=== PATIENT | male | born 1965 | race Caucasian/White ===

== ENCOUNTER 2017-06-19 14:56 | Inpatient (IN) | payer OTHER ==
[2017-06-19 17:25] VITALS: BMI 28.3
--- NOTE | 2017-06-19 18:20 | HP ---
CIWA Score - CIWA Score Nausea/Vomitin Muscle Tremors: 3 Anxiety: 3 Agitation: 3 Paroxysmal Sweats: 2 Orientation: 0-Oriented Tacttile Disturbances: 2-Mild Itch/Numbness/Burn Auditory Disturbances: 2-Mild Harshness/Frighten Visual Disturbances: 2-Mild Sensitivity Headache: 2-Mild CIWA-Ar Total Score: 22 Admission ROS BHS - HPI Chief Complaint: i am here to get my life back Allergies/Adverse Reactions: Allergies Allergy/AdvReac Type Severity Reaction Status Date / Time No Known Drug Allergies Allergy Verified 06/20/17 01:47 trazodone AdvReac Intermediate Nausea Verified 06/20/17 01:47 History of Present Illness: this 51 years old male with alcohol dependence,seeking detox ,last treatment [facility] 05/26/17 to 06/17/17 not completed seen in [facility] on 06/18/17 receiving librium asthma non union fx of left scaphoid at age of 31 years nicotine dependence longest period of sobriety 5 years ptsd anxiety and depression Exam Limitations: No Limitations - Ebola screening Have you traveled outside of the country in the last 21 days: No Have you had contact with anyone from an Ebola affected area: No Have you been sick,other than usual withdrawal symptoms: No Do you have a fever: No - Review of Systems Constitutional: Loss of Appetite, Malaise, Night Sweats, Changes in sleep, Weakness EENT: reports: Nose Congestion Respiratory: reports: No Symptoms reported Cardiac: reports: No Symptoms Reported GI: reports: Diarrhea, Nausea, Vomiting, Abdominal cramping : reports: No Symptoms Reported Musculoskeletal: reports: Back Pain, Muscle Pain Neuro: reports: Headache, Tremors Endocrine: reports: No Symptoms Reported Hematology: reports: No Symptoms Reported Psychiatric: reports: No Sypmtoms Reported, Judgement Intact, Orientated x3 ( insomnia), Anxious, Depressed Patient History - Patient Medical History Hx Anemia: No Hx Asthma: Yes (Pt is on Albuterol IH) Hx Chronic Obstructive Pulmonary Disease (COPD): No Hx Cardiac Disorders: No Hx Hypertension: Yes (BP: 156/104) Hx Hypercholesterolemia: No Hx Pacemaker: No HX Cerebrovascular Accident: No Hx Seizures: No Hx Diabetes: No Hx Gastrointestinal Disorders: No Hx Liver Disease: No Hx Genitourinary Disorders: No Hx Sexually Transmitted Disorders: No Hx Renal Disease (ESRD): No Hx Thyroid Disease: No Hx Human Immunodeficiency Virus (HIV): No (NEGATIVE HX last 2015) Hx Hepatitis C: No Hx Depression: Yes (anxiety,) Hx Suicide Attempt: No Hx Bipolar Disorder: No Hx Schizophrenia: No Other Medical History: no suicidal,no homicidal - Patient Surgical History Past Surgical History: No Hx Neurologic Surgery: No Hx Cataract Extraction: No Hx Cardiac Surgery: No Hx Lung Surgery: No Hx Breast Surgery: No Hx Breast Biopsy: No Hx Abdominal Surgery: No Hx Appendectomy: No Hx Cholecystectomy: No Hx Genitourinary Surgery: No Hx Orthopedic Surgery: No Other Surgical History: Sinus Surgery 7 months ago Anesthesia Reaction: No - PPD History Previous Implant?: Yes Documented Results: Positive w/o proof PPD to be Administered?: No - Smoking Cessation Smoking history: Current every day smoker Have you smoked in the past 12 months: Yes Aproximately how many cigarettes per day: 20 Hx Chewing Tobacco Use: No Initiated information on smoking cessation: Yes 'Breaking Loose' booklet given: 06/19/17 - Substance & Tx. History Hx Alcohol Use: Yes Hx Substance Use: No Substance Use Type: Alcohol Hx Substance Use Treatment: Yes ([facility]/17 to 06/17/17 not completed) - Substances Abused Alcohol Route: Oral Frequency: Daily Amount used: Vodka 2-3 pints Age of first use: 11 Date of Last Use: 06/18/17 Family Disease History - Family Disease History Family Disease History: CA: Father (LUNG CA ), Mother (OVARIAN CA;HTN- ), Other: Mother Admission Physical Exam BHS - Vital Signs Vital Signs: Vital Signs - 24 hr 06/19/17 17:23 Temperature 98.2 F Pulse Rate 93 H Respiratory 18 Rate Blood Pressure 156/104 - Physical General Appearance: Yes: Moderate Distress, Tremorous, Irritable, Sweating, Anxious HEENTM: Yes: Hearing grossly Normal, Normal ENT Inspection, Normocephalic, CONNIE , Pharynx Normal Respiratory: Yes: Lungs Clear, Normal Breath Sounds, No Respiratory Distress Neck: Yes: Within Normal Limits, Supple, Trachea in good position Breast: Yes: Within Normal Limits Cardiology: Yes: Within Normal Limits, Regular Rhythm, Regular Rate, S1, S2 Abdominal: Yes: Within Normal Limits, Normal Bowel Sounds, Non Tender, Flat, Soft Genitourinary: Yes: Within Normal Limits Back: Yes: Muscle Spasm Musculoskeletal: Yes: Back pain, Muscle Pain Extremities: Yes: Within Normal Limits, Normal Range of Motion, Tremors 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: 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: 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, Fully Oriented, Alert, Motor Strength 5/5 Integumentary: Yes: Dry Lymphatic: Yes: Within Normal Limits - Diagnostic (1) Nicotine dependence Current Visit: Yes Status: Acute Qualifiers: Nicotine product type: cigarettes Substance use status: in withdrawal Qualified Code(s): F17.213 - Nicotine dependence, cigarettes, with withdrawal (2) PTSD (post-traumatic stress disorder) Current Visit: No Status: Acute (3) Alcohol dependence with uncomplicated withdrawal Current Visit: Yes Status: Acute (4) History of asthma Current Visit: Yes Status: Chronic (5) Scoliosis Current Visit: Yes Status: Chronic Qualifiers: Scoliosis type: unspecified scoliosis (6) 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
[2017-06-19] MEDS ORDERED: MENTHOL/PHENOL 1 EACH UD MM PRN (18:33)
[2017-06-19] MEDS ORDERED: MAG HYDROX/AL HYDROX/SIMETH 30 ML UNIT-DOSE CUP PO PRN (18:33)
[2017-06-19] MEDS ORDERED: P-EPHED 60MG/TRIPROLIDI 2.5MG TABLET PO PRN (18:33)
[2017-06-19] MEDS ORDERED: chlordiazePOXIDE HCL 25 MG CAPSULE PO ONE (18:33)
[2017-06-19] MEDS ORDERED: LOPERAMIDE HCL 2 MG CAPSULE PO PRN (18:33)
[2017-06-19] MEDS ORDERED: hydrOXYzine PAMOATE 50 MG CAPSULE (FP) PO PRN (18:33)
[2017-06-19] MEDS ORDERED: chlordiazePOXIDE HCL 25 MG CAPSULE PO PRN (18:33)
[2017-06-19] MEDS ORDERED: ACETAMINOPHEN 325 MG TABLET (FP) PO PRN (18:33)
[2017-06-19] MEDS ORDERED: IBUPROFEN 400 MG TABLET (FP) PO PRN (18:33)
[2017-06-19] MEDS ORDERED: MAGNESIUM HYDROX 2400MG/30ML ORAL SUSPENSION 30 ML CUP PO PRN (18:33)
[2017-06-19] MEDS ORDERED: MAGNESIUM CITRATE 300 ML BOTTLE PO PRN (18:33)
[2017-06-19] MEDS ORDERED: ALBUTEROL SO4 6.7 GM HFA INHALER IH PRN (18:38)
[2017-06-19] MEDS: NICOTINE 21 MG/24 HOURS TOPICAL PATCH TD SCH (19:29)
[2017-06-19] MEDS ORDERED: diphenhydrAMINE HCL 50 MG CAPSULE PO PRN (22:00)
[2017-06-19] MEDS: THIAMINE HCL 100 MG TABLET (FP) PO SCH (22:40)
[2017-06-19] MEDS: chlordiazePOXIDE HCL 25 MG CAPSULE PO SCH (22:40)
[2017-06-19] MEDS: RANITIDINE HCL 150 MG TABLET (FP) PO SCH (22:40)
[2017-06-19 23:14] LABS: URINE APPEARANCE CLEAR; URINE BILIRUBIN NEGATIVE (NEGATIVE); URINE BLOOD NEGATIVE (NEGATIVE); URINE COLOR YELLOW; URINE GLUCOSE (UA) NEGATIVE (NEGATIVE); URINE KETONE NEGATIVE (NEGATIVE); URINE LEUK ESTERASE NEGATIVE (NEGATIVE); URINE NITRITE NEGATIVE (NEGATIVE); URINE PROTEIN NEGATIVE (NEGATIVE)
[2017-06-20] MEDS: chlordiazePOXIDE HCL 25 MG CAPSULE PO SCH ×4 (05:17→22:05)
[2017-06-20] MEDS: guaiFENesin/D-METHORPHAN HB 10 ML UNIT-DOSE CUPS PO PRN (05:18)
--- NOTE | 2017-06-20 09:04 | CONSULT ---
[facility] Psychiatric Consult - Data Date of interview: 06/20/17 Admission source: [facility] Identifying data: This is 51 years old male with psychiatric hospitalization history, history of PTSD and OTONIEL, intoxicated with: Alcoholm and Nicotine Substance Abuse History: - Smoking Cessation. Smoking history: Current every day smoker. Have you smoked in the past 12 months: Yes. Aproximately how many cigarettes per day: 20. Hx Chewing Tobacco Use: No. Initiated information on smoking cessation: Yes. 'Breaking Loose' booklet given: 06/19/17. - Substance & Tx. History. Hx Alcohol Use: Yes. Hx Substance Use: No. Substance Use Type : Alcohol. Hx Substance Use Treatment: Yes ([facility] to 06/17/17 not completed). - Substances Abused. Alcohol. Route: Oral. Frequency: Daily. Amount used: Vodka 2-3 pints. Age of first use: 11. Date of Last Use: Medical History: Asthma PPD + history, Scoliosis Psychiatric History: Patient reports history of depression, history of PTSD and OTONIEL as per computer, reports taking prior to admission: Seroquel 50mg po qhs Physical/Sexual Abuse/Trauma History: Denies Additional Comment: Seroquel 50mg po qhs Mental Status Exam - Mental Status Exam Alert and Oriented to: Person Cognitive Function: Fair Patient Appearance: Unkempt Mood: Apprehensive Affect: Mood Congruent Patient Behavior: Cooperative Speech Pattern: Appropriate Voice Loudness: Normal Thought Process: Circumstantial Thought Disorder: Being Controlled Hallucinations: Denies Suicidal Ideation: Denies Homicidal Ideation: Denies Insight/Judgement: Fair Sleep: Difficulty falling asleep Appetite: Fair Muscle strength/Tone: Mild Hypotonicity Gait/Station: Shuffling Additional Comments: Seroquel 50mg po qhs Psychiatric Findings - Problem List ([place] 1, 2,3) (1) OTONIEL (generalized anxiety disorder) Current Visit: No Status: Acute (2) Nicotine dependence Current Visit: No Status: Acute (3) PTSD (post-traumatic stress disorder) Current Visit: No Status: Acute (4) Alcohol dependence with uncomplicated withdrawal Current Visit: No Status: Chronic (5) Drug-induced mood disorder Current Visit: Yes Status: Acute - Initial Treatment Plan Initial Treatment Plan: Seroquel 50mg po qhs
[2017-06-20 10:15] LABS: MCH 31.8 pg (25.7-33.7); MCHC 33.6 g/dl (32.0-35.9); MEAN CELL VOLUME 94.7 fl (80-96); MEAN PLT VOLUME 8.7 fl (7.5-11.1); PLATELET COUNT 110 K/MM3 (134-434); RDW 17.5 % (11.9-15.9)
[2017-06-20 10:27] LABS: ALBUMIN 3.2 g/dl (3.4-5.0); ANION GAP 6 (8-16); CALCIUM 8.7 mg/dL (8.5-10.1); CO2 32 mmol/L (21-32); GLUCOSE,RANDOM 101 mg/dL (74-106)
[2017-06-20 10:31] LABS: ALK PHOS 71 U/L (45-117); CREATININE 0.7 mg/dL (0.7-1.3); SGOT/AST 98 U/L (15-37); SGPT/ALT 138 U/L (12-78)
[2017-06-20 10:37] LABS: HIV 1 & 2 AB NEGATIVE; HIV 1 AGp24 NEGATIVE
[2017-06-20] MEDS: RANITIDINE HCL 150 MG TABLET (FP) PO SCH ×2 (10:58→22:04)
[2017-06-20] MEDS: PRENATAL VITAMINS W/ FOLIC ACID TABLET (FP) PO SCH (10:58)
[2017-06-20] MEDS: IBUPROFEN 600 MG TABLET (FP) PO PRN ×2 (11:00→20:09)
[2017-06-20] MEDS: NICOTINE 21 MG/24 HOURS TOPICAL PATCH TD SCH ×2 (11:06→14:25)
--- NOTE | 2017-06-20 11:49 | PN ---
[facility] CIWA - CIWA Score Nausea/Vomitin-No Nausea/No Vomiting Muscle Tremors: 4-Moderate,w/Arms Extend Anxiety: 4-Mod. Anxious/Guarded Agitation: 3 Paroxysmal Sweats: 1-Minimal Palms Moist Orientation: 0-Oriented Tacttile Disturbances: 3-Moderate Itch/Numb/Burn Auditory Disturbances: 0-None Visual Disturbances: 0-None Headache: 0-None Present CIWA-Ar Total Score: 15 S Progress Note (SOAP) Subjective: TREMORS,ANXIETY,SWEATS,FATIGUE. Objective: 06/20/17 11:48 Vital Signs Temperature 97.0 F L 06/20/17 10:06 Pulse Rate 74 06/20/17 10:06 Respiratory Rate 18 06/20/17 10:06 Blood Pressure 145/100 06/20/17 10:06 O2 Sat by Pulse Oximetry (%) Laboratory Last Values WBC 6.0 K/mm3 (4.0-10.0) 06/20/17 06:30 RBC 4.25 M/mm3 (4.00-5.60) 06/20/17 06:30 Hgb 13.5 GM/dL (11.7-16.9) 06/20/17 06:30 Hct 40.3 % (35.4-49) 06/20/17 06:30 MCV 94.7 fl (80-96) 06/20/17 06:30 MCH 31.8 pg (25.7-33.7) 06/20/17 06:30 MCHC 33.6 g/dl (32.0-35.9) 06/20/17 06:30 RDW 17.5 % (11.9-15.9) H 06/20/17 06:30 Plt Count 110 K/MM3 (134-434) L D 06/20/17 06:30 MPV 8.7 fl (7.5-11.1) 06/20/17 06:30 Sodium 144 mmol/L (136-145) 06/20/17 06:30 Potassium 3.5 mmol/L (3.5-5.1) 06/20/17 06:30 Chloride 106 mmol/L (98-107) 06/20/17 06:30 Carbon Dioxide 32 mmol/L (21-32) D 06/20/17 06:30 Anion Gap 6 (8-16) L 06/20/17 06:30 BUN 15 mg/dL (7-18) D 06/20/17 06:30 Creatinine 0.7 mg/dL (0.7-1.3) D 06/20/17 06:30 Creat Clearance w eGFR > 60 (>60) 06/20/17 06:30 Random Glucose 101 mg/dL (74-106) D 06/20/17 06:30 Calcium 8.7 mg/dL (8.5-10.1) 06/20/17 06:30 Total Bilirubin 1.0 mg/dL (0.2-1.0) D 06/20/17 06:30 AST 98 U/L (15-37) H D 06/20/17 06:30 ALT 138 U/L (12-78) H D 06/20/17 06:30 Alkaline Phosphatase 71 U/L (45-117) 06/20/17 06:30 Total Protein 6.0 g/dl (6.4-8.2) L 06/20/17 06:30 Albumin 3.2 g/dl (3.4-5.0) L 06/20/17 06:30 Urine Color Yellow 06/19/17 18:47 Urine Appearance Clear 06/19/17 18:47 Urine pH 6.0 (5.0-8.0) 06/19/17 18:47 Ur Specific [place] 1.025 (1.005-1.025) 06/19/17 18:47 Urine Protein Negative (NEGATIVE) 06/19/17 18:47 Urine Glucose (UA) Negative (NEGATIVE) 06/19/17 18:47 Urine Ketones Negative (NEGATIVE) 06/19/17 18:47 Urine Blood Negative (NEGATIVE) 06/19/17 18:47 Urine Nitrite Negative (NEGATIVE) 06/19/17 18:47 Urine Bilirubin Negative (NEGATIVE) 06/19/17 18:47 Urine Urobilinogen 2.0 mg/dL (0.2-1.0) 06/19/17 18:47 Ur Leukocyte Esterase Negative (NEGATIVE) 06/19/17 18:47 HIV 1&2 Antibody Screen Negative 06/20/17 06:30 HIV P24 Antigen Negative 06/20/17 06:30 Assessment: 06/20/17 11:48 WITHDRAWAL SX Plan: CONTINUE DETOX ADDITIONAL LIBRIUM 5O MG PO AT 2:30 PM TODAY.
--- NOTE | 2017-06-20 11:59 | EKG ---
Test Reason : Blood Pressure : / mmHG Vent. Rate : 081 BPM Atrial Rate : 081 BPM P-R Int : 178 ms QRS Dur : 074 ms QT Int : 352 ms P-R-T Axes : 063 054 058 degrees QTc Int : 408 ms NORMAL SINUS RHYTHM NORMAL ECG NO PREVIOUS ECGS AVAILABLE Confirmed by CHELLY VANCE MD ([id number]) on 06/20/2017 11:59:05 AM Referred By: Confirmed By:CHELLY VANCE MD
[2017-06-20] MEDS ORDERED: TRIMETHOBENZAMIDE HCL 200MG/2ML INJ IM PRN (13:32)
[2017-06-20] MEDS ORDERED: chlordiazePOXIDE HCL 25 MG CAPSULE PO ONE (14:30)
[2017-06-20] MEDS: NICOTINE POLACRILEX 2 MG GUM BUC PRN (20:50)
[2017-06-20] MEDS: THIAMINE HCL 100 MG TABLET (FP) PO SCH (22:04)
[2017-06-20] MEDS: QUEtiapine FUMARATE 50 MG TABLET PO SCH (22:04)
[2017-06-21] MEDS: chlordiazePOXIDE HCL 25 MG CAPSULE PO SCH ×3 (05:28→17:13)
[2017-06-21] MEDS: RANITIDINE HCL 150 MG TABLET (FP) PO SCH ×2 (10:42→22:17)
[2017-06-21] MEDS: PRENATAL VITAMINS W/ FOLIC ACID TABLET (FP) PO SCH (10:42)
[2017-06-21] MEDS: IBUPROFEN 600 MG TABLET (FP) PO PRN (10:43)
[2017-06-21] MEDS: NICOTINE 21 MG/24 HOURS TOPICAL PATCH TD SCH (10:44)
--- NOTE | 2017-06-21 11:41 | PN ---
[facility] CIWA - CIWA Score Nausea/Vomitin-No Nausea/No Vomiting Muscle Tremors: 4-Moderate,w/Arms Extend Anxiety: 4-Mod. Anxious/Guarded Agitation: 4-Moderately Restless Paroxysmal Sweats: 1-Minimal Palms Moist Orientation: 0-Oriented Tacttile Disturbances: 3-Moderate Itch/Numb/Burn Auditory Disturbances: 0-None Visual Disturbances: 0-None Headache: 0-None Present CIWA-Ar Total Score: 16 S Progress Note (SOAP) Subjective: TREMORS,ANXIETY,SLIGHT IRRITABILITY, NAUSEA/VOMITING. Objective: 06/21/17 11:40 Vital Signs Temperature 96 F L 06/21/17 09:23 Pulse Rate 76 06/21/17 09:23 Respiratory Rate 18 06/21/17 09:23 Blood Pressure 114/77 06/21/17 09:23 O2 Sat by Pulse Oximetry (%) Laboratory Last Values WBC 6.0 K/mm3 (4.0-10.0) 06/20/17 06:30 RBC 4.25 M/mm3 (4.00-5.60) 06/20/17 06:30 Hgb 13.5 GM/dL (11.7-16.9) 06/20/17 06:30 Hct 40.3 % (35.4-49) 06/20/17 06:30 MCV 94.7 fl (80-96) 06/20/17 06:30 MCH 31.8 pg (25.7-33.7) 06/20/17 06:30 MCHC 33.6 g/dl (32.0-35.9) 06/20/17 06:30 RDW 17.5 % (11.9-15.9) H 06/20/17 06:30 Plt Count 110 K/MM3 (134-434) L D 06/20/17 06:30 MPV 8.7 fl (7.5-11.1) 06/20/17 06:30 Sodium 144 mmol/L (136-145) 06/20/17 06:30 Potassium 3.5 mmol/L (3.5-5.1) 06/20/17 06:30 Chloride 106 mmol/L (98-107) 06/20/17 06:30 Carbon Dioxide 32 mmol/L (21-32) D 06/20/17 06:30 Anion Gap 6 (8-16) L 06/20/17 06:30 BUN 15 mg/dL (7-18) D 06/20/17 06:30 Creatinine 0.7 mg/dL (0.7-1.3) D 06/20/17 06:30 Creat Clearance w eGFR > 60 (>60) 06/20/17 06:30 Random Glucose 101 mg/dL (74-106) D 06/20/17 06:30 Calcium 8.7 mg/dL (8.5-10.1) 06/20/17 06:30 Total Bilirubin 1.0 mg/dL (0.2-1.0) D 06/20/17 06:30 AST 98 U/L (15-37) H D 06/20/17 06:30 ALT 138 U/L (12-78) H D 06/20/17 06:30 Alkaline Phosphatase 71 U/L (45-117) 06/20/17 06:30 Total Protein 6.0 g/dl (6.4-8.2) L 06/20/17 06:30 Albumin 3.2 g/dl (3.4-5.0) L 06/20/17 06:30 Urine Color Yellow 06/19/17 18:47 Urine Appearance Clear 06/19/17 18:47 Urine pH 6.0 (5.0-8.0) 06/19/17 18:47 Ur Specific [place] 1.025 (1.005-1.025) 06/19/17 18:47 Urine Protein Negative (NEGATIVE) 06/19/17 18:47 Urine Glucose (UA) Negative (NEGATIVE) 06/19/17 18:47 Urine Ketones Negative (NEGATIVE) 06/19/17 18:47 Urine Blood Negative (NEGATIVE) 06/19/17 18:47 Urine Nitrite Negative (NEGATIVE) 06/19/17 18:47 Urine Bilirubin Negative (NEGATIVE) 06/19/17 18:47 Urine Urobilinogen 2.0 mg/dL (0.2-1.0) 06/19/17 18:47 Ur Leukocyte Esterase Negative (NEGATIVE) 06/19/17 18:47 RPR Titer Nonreactive (NONREACTIVE) 06/20/17 06:30 HIV 1&2 Antibody Screen Negative 06/20/17 06:30 HIV P24 Antigen Negative 06/20/17 06:30 Assessment: 06/21/17 11:40 WITHDRAWAL SX Plan: CONTINUE DETOX. JODEE SHERWOOD DIRECTED.
[2017-06-21] MEDS ORDERED: chlordiazePOXIDE HCL 25 MG CAPSULE PO ONE (14:00)
[2017-06-21] MEDS: THIAMINE HCL 100 MG TABLET (FP) PO SCH (22:17)
[2017-06-21] MEDS: chlordiazePOXIDE 5 MG CAPSULE PO SCH (22:17)
[2017-06-21] MEDS: QUEtiapine FUMARATE 50 MG TABLET PO SCH (22:17)
[2017-06-21] MEDS: NICOTINE POLACRILEX 2 MG GUM BUC PRN (22:18)
[2017-06-22] MEDS: chlordiazePOXIDE 5 MG CAPSULE PO SCH ×3 (05:28→17:49)
[2017-06-22] MEDS: guaiFENesin/D-METHORPHAN HB 10 ML UNIT-DOSE CUPS PO PRN (05:29)
[2017-06-22] MEDS: PRENATAL VITAMINS W/ FOLIC ACID TABLET (FP) PO SCH (10:41)
[2017-06-22] MEDS: RANITIDINE HCL 150 MG TABLET (FP) PO SCH ×2 (10:41→22:42)
[2017-06-22] MEDS: NICOTINE 21 MG/24 HOURS TOPICAL PATCH TD SCH (10:42)
[2017-06-22] MEDS: IBUPROFEN 600 MG TABLET (FP) PO PRN (10:44)
[2017-06-22] MEDS ORDERED: cloNIDine HCL 0.1 MG TABLET PO ONE (11:02)
--- NOTE | 2017-06-22 16:17 | PN ---
BHS Progress Note (SOAP) Subjective: Body Aches, Stomach Cramping, Diarrhea, Interrupted sleep, H/A, Sweating. Objective: PT. A & O X 3, OBSERVED AMBULATING ON UNIT. NO ACUTE DISTRESS. PATIENT DENIES CHEST PAIN. 06/22/17 16:15 Vital Signs Temperature 97 F L 06/22/17 13:52 Pulse Rate 70 06/22/17 13:52 Respiratory Rate 20 06/22/17 13:52 Blood Pressure 154/99 06/22/17 13:52 O2 Sat by Pulse Oximetry (%) Laboratory Tests 06/19/17 06/20/17 06/20/17 18:47 06:30 06:30 WBC 6.0 RBC 4.25 Hgb 13.5 Hct 40.3 MCV 94.7 MCH 31.8 MCHC 33.6 RDW 17.5 H Plt Count 110 L D MPV 8.7 Sodium Potassium Chloride Carbon Dioxide Anion Gap BUN Creatinine Creat Clearance w eGFR Random Glucose Calcium Total Bilirubin AST ALT Alkaline Phosphatase Total Protein Albumin Urine Color Yellow Urine Appearance Clear Urine pH 6.0 Ur Specific [place] 1.025 Urine Protein Negative Urine Glucose (UA) Negative Urine Ketones Negative Urine Blood Negative Urine Nitrite Negative Urine Bilirubin Negative Urine Urobilinogen 2.0 Ur Leukocyte Esterase Negative RPR Titer HIV 1&2 Antibody Screen Negative HIV P24 Antigen Negative 06/20/17 06/20/17 06:30 06:30 WBC RBC Hgb Hct MCV MCH MCHC RDW Plt Count MPV Sodium 144 Potassium 3.5 Chloride 106 Carbon Dioxide 32 D Anion Gap 6 L BUN 15 D Creatinine 0.7 D Creat Clearance w eGFR > 60 Random Glucose 101 D Calcium 8.7 Total Bilirubin 1.0 D AST 98 H D ALT 138 H D Alkaline Phosphatase 71 Total Protein 6.0 L Albumin 3.2 L Urine Color Urine Appearance Urine pH Ur Specific [place] Urine Protein Urine Glucose (UA) Urine Ketones Urine Blood Urine Nitrite Urine Bilirubin Urine Urobilinogen Ur Leukocyte Esterase RPR Titer Nonreactive HIV 1&2 Antibody Screen HIV P24 Antigen LABS NOTED. Assessment: 06/22/17 16:15 WITHDRAWAL SYMPTOMS. Plan: CONTINUE DETOX. CLONIDINE, 0.1 MG PO X 1, FOLLOWED BY 0.1 MG PO BID AFTER FOR ELEVATED BP AND DETOX SYMPTOMS.
[2017-06-22] MEDS: NICOTINE POLACRILEX 2 MG GUM BUC PRN ×2 (17:50→22:43)
[2017-06-22] MEDS: QUEtiapine FUMARATE 50 MG TABLET PO SCH (22:42)
[2017-06-22] MEDS: THIAMINE HCL 100 MG TABLET (FP) PO SCH (22:42)
[2017-06-22] MEDS: chlordiazePOXIDE HCL 10 MG CAPSULE PO SCH (22:42)
[2017-06-22] MEDS: cloNIDine HCL 0.1 MG TABLET PO SCH (22:42)
[2017-06-23] MEDS: chlordiazePOXIDE HCL 10 MG CAPSULE PO SCH ×3 (05:32→17:08)
[2017-06-23] MEDS: IBUPROFEN 600 MG TABLET (FP) PO PRN ×2 (05:34→17:09)
[2017-06-23] MEDS: NICOTINE 21 MG/24 HOURS TOPICAL PATCH TD SCH (10:45)
[2017-06-23] MEDS: PRENATAL VITAMINS W/ FOLIC ACID TABLET (FP) PO SCH (10:46)
[2017-06-23] MEDS: cloNIDine HCL 0.1 MG TABLET PO SCH ×2 (10:46→22:27)
[2017-06-23] MEDS: RANITIDINE HCL 150 MG TABLET (FP) PO SCH ×2 (10:46→22:27)
[2017-06-23] MEDS: NICOTINE POLACRILEX 2 MG GUM BUC PRN (11:25)
[2017-06-23] MEDS ORDERED: IBUPROFEN 400 MG TABLET (FP) PO ONE (11:38)
--- NOTE | 2017-06-23 15:04 | PN ---
S Progress Note (SOAP) Subjective: Headache (06/03, motrin 400mg helps temporarily), interrupted sleep, anxious Objective: 06/23/17 15:00 Last Vital Signs Temp Pulse Resp BP Pulse Ox 96.9 F L 66 18 127/85 06/23/17 13:47 06/23/17 13:47 06/23/17 13:47 06/23/17 13:47 Laboratory Tests 06/19/17 06/20/17 06/20/17 18:47 06:30 06:30 WBC 6.0 RBC 4.25 Hgb 13.5 Hct 40.3 MCV 94.7 MCH 31.8 MCHC 33.6 RDW 17.5 H Plt Count 110 L D MPV 8.7 Sodium Potassium Chloride Carbon Dioxide Anion Gap BUN Creatinine Creat Clearance w eGFR Random Glucose Calcium Total Bilirubin AST ALT Alkaline Phosphatase Total Protein Albumin Urine Color Yellow Urine Appearance Clear Urine pH 6.0 Ur Specific [place] 1.025 Urine Protein Negative Urine Glucose (UA) Negative Urine Ketones Negative Urine Blood Negative Urine Nitrite Negative Urine Bilirubin Negative Urine Urobilinogen 2.0 Ur Leukocyte Esterase Negative RPR Titer HIV 1&2 Antibody Screen Negative HIV P24 Antigen Negative 06/20/17 06/20/17 06:30 06:30 WBC RBC Hgb Hct MCV MCH MCHC RDW Plt Count MPV Sodium 144 Potassium 3.5 Chloride 106 Carbon Dioxide 32 D Anion Gap 6 L BUN 15 D Creatinine 0.7 D Creat Clearance w eGFR > 60 Random Glucose 101 D Calcium 8.7 Total Bilirubin 1.0 D AST 98 H D ALT 138 H D Alkaline Phosphatase 71 Total Protein 6.0 L Albumin 3.2 L Urine Color Urine Appearance Urine pH Ur Specific [place] Urine Protein Urine Glucose (UA) Urine Ketones Urine Blood Urine Nitrite Urine Bilirubin Urine Urobilinogen Ur Leukocyte Esterase RPR Titer Nonreactive HIV 1&2 Antibody Screen HIV P24 Antigen Labs noted Assessment: 06/23/17 15:02 Withdrawal symptoms Plan: Continue detox Encouraged to drink lots of water, motrin 800mg PO x 1 dose for headache 06/03
[2017-06-23] MEDS: QUEtiapine FUMARATE 50 MG TABLET PO SCH (22:27)
[2017-06-23] MEDS: THIAMINE HCL 100 MG TABLET (FP) PO SCH (22:27)
[2017-06-24] MEDS: IBUPROFEN 600 MG TABLET (FP) PO PRN (05:50)
[2017-06-24 09:26] VITALS: BP 131/85; PULSE 75; TEMP 97.5
[2017-06-24] MEDS: NICOTINE 21 MG/24 HOURS TOPICAL PATCH TD SCH (10:21)
[2017-06-24] MEDS: cloNIDine HCL 0.1 MG TABLET PO SCH (10:21)
[2017-06-24] MEDS: RANITIDINE HCL 150 MG TABLET (FP) PO SCH (10:22)
[2017-06-24] MEDS: PRENATAL VITAMINS W/ FOLIC ACID TABLET (FP) PO SCH (10:22)
--- NOTE | 2017-06-24 12:52 | DS ---
[facility] Detox Discharge Summary Admission Date: 06/19/17 Discharge Date: 06/24/17 - History Present History: Alcohol Dependence Pertinent Past History: PTSD - Physical Exam Results Vital Signs: Vital Signs Temperature 97.5 F L 06/24/17 09:26 Pulse Rate 75 06/24/17 09:26 Respiratory Rate 16 06/24/17 09:26 Blood Pressure 131/85 06/24/17 09:26 O2 Sat by Pulse Oximetry (%) Pertinent Admission Physical Exam Findings: Withdrawal sx. Laboratory Last Values WBC 6.0 K/mm3 (4.0-10.0) 06/20/17 06:30 RBC 4.25 M/mm3 (4.00-5.60) 06/20/17 06:30 Hgb 13.5 GM/dL (11.7-16.9) 06/20/17 06:30 Hct 40.3 % (35.4-49) 06/20/17 06:30 MCV 94.7 fl (80-96) 06/20/17 06:30 MCH 31.8 pg (25.7-33.7) 06/20/17 06:30 MCHC 33.6 g/dl (32.0-35.9) 06/20/17 06:30 RDW 17.5 % (11.9-15.9) H 06/20/17 06:30 Plt Count 110 K/MM3 (134-434) L D 06/20/17 06:30 MPV 8.7 fl (7.5-11.1) 06/20/17 06:30 Sodium 144 mmol/L (136-145) 06/20/17 06:30 Potassium 3.5 mmol/L (3.5-5.1) 06/20/17 06:30 Chloride 106 mmol/L (98-107) 06/20/17 06:30 Carbon Dioxide 32 mmol/L (21-32) D 06/20/17 06:30 Anion Gap 6 (8-16) L 06/20/17 06:30 BUN 15 mg/dL (7-18) D 06/20/17 06:30 Creatinine 0.7 mg/dL (0.7-1.3) D 06/20/17 06:30 Creat Clearance w eGFR > 60 (>60) 06/20/17 06:30 Random Glucose 101 mg/dL (74-106) D 06/20/17 06:30 Calcium 8.7 mg/dL (8.5-10.1) 06/20/17 06:30 Total Bilirubin 1.0 mg/dL (0.2-1.0) D 06/20/17 06:30 AST 98 U/L (15-37) H D 06/20/17 06:30 ALT 138 U/L (12-78) H D 06/20/17 06:30 Alkaline Phosphatase 71 U/L (45-117) 06/20/17 06:30 Total Protein 6.0 g/dl (6.4-8.2) L 06/20/17 06:30 Albumin 3.2 g/dl (3.4-5.0) L 06/20/17 06:30 Urine Color Yellow 06/19/17 18:47 Urine Appearance Clear 06/19/17 18:47 Urine pH 6.0 (5.0-8.0) 06/19/17 18:47 Ur Specific [place] 1.025 (1.005-1.025) 06/19/17 18:47 Urine Protein Negative (NEGATIVE) 06/19/17 18:47 Urine Glucose (UA) Negative (NEGATIVE) 06/19/17 18:47 Urine Ketones Negative (NEGATIVE) 06/19/17 18:47 Urine Blood Negative (NEGATIVE) 06/19/17 18:47 Urine Nitrite Negative (NEGATIVE) 06/19/17 18:47 Urine Bilirubin Negative (NEGATIVE) 06/19/17 18:47 Urine Urobilinogen 2.0 mg/dL (0.2-1.0) 06/19/17 18:47 Ur Leukocyte Esterase Negative (NEGATIVE) 06/19/17 18:47 RPR Titer Nonreactive (NONREACTIVE) 06/20/17 06:30 HIV 1&2 Antibody Screen Negative 06/20/17 06:30 HIV P24 Antigen Negative 06/20/17 06:30 labs noted - Treatment Hospital Course: Detox Protocol Followed, Detoxed Safely, Responded well, Discharged Condition Good, Rehab Referral Accepted Patient has Accepted a Rehab Referral to: [facility] - Medication Discharge Medications: Ambulatory Orders Quetiapine Fumarate [Seroquel -] 50 mg PO HS 10/05/16 Albuterol Sulfate Inhaler - [Ventolin HFA Inhaler -] 2 inh IH Q4H PRN #1 inhaler 10/23/16 Ibuprofen [Motrin -] 800 tab PO TID PRN #30 tablet 10/23/16 Ranitidine [Zantac -] 150 mg PO BID #60 tablet 10/23/16 Quetiapine Fumarate [Seroquel -] 50 mg PO HS #30 tablet 06/20/17 - Diagnosis (1) Alcohol dependence with uncomplicated withdrawal Status: Acute (2) Nicotine dependence Status: Acute Qualifiers: Nicotine product type: cigarettes Substance use status: in withdrawal Qualified Code(s): F17.213 - Nicotine dependence, cigarettes, with withdrawal (3) PTSD (post-traumatic stress disorder) Status: Acute (4) History of asthma Status: Chronic (5) Drug-induced mood disorder Status: Acute (6) OTONIEL (generalized anxiety disorder) Status: Acute - AMA Did Patient Leave Against Medical Advice: No
== END 2017-06-24 10:55 | disposition home or self-care (01) | DRG 775 ==
LOC: YASAS 14:56 → Y3N 17:34
PROVIDERS: ADMIT Internal Medicine; ATTEND Internal Medicine
PROC: HZ2ZZZZ Detoxification Services for Substance Abuse Treatment (ICD-10-PCS; principal; 2017-06-19)
DX: F10.230 Alcohol dependence with withdrawal, uncomplicated (principal); F17.213 Nicotine dependence, cigarettes, with withdrawal; F43.10 Post-traumatic stress disorder, unspecified; F19.24 Other psychoactive substance dependence with psychoactive substance-induced mood disorder; F41.1 Generalized anxiety disorder; I10 Essential (primary) hypertension; J45.909 Unspecified asthma, uncomplicated; M41.9 Scoliosis, unspecified
CPT/HCPCS: 36415; 71010-TC; 80053; 81003; 85027; 86593; 87389; 93005; 93010